=== PATIENT | male | born 1995 | race American Indian/Alaskan Native ===

== ENCOUNTER 2018-03-19 10:33 | Emergency (ER) | payer OTHER ==
[2018-03-19] MEDS ORDERED: Ketorolac 30 MG/ML SDV IM ONE (11:13)
--- NOTE | 2018-03-19 11:23 | EDM.PDOC ---
Scribed by Camilla Lopez 03/19/18 1123 for Vikas Thomas PA ED HPI GENERAL MEDICAL PROBLEM - General Chief Complaint: Lower Extremity Injury/Pain Stated Complaint: RT HIP Time Seen by Provider: 03/19/18 11:06 Source of Information: Reports: Patient, RN, RN Notes Reviewed History Limitations: Reports: No Limitations - History of Present Illness INITIAL COMMENTS - FREE TEXT/NARRATIVE: {Patient states he had right foot pain that started yesterday and then moved up to his leg and now into his hip. Patient was marching in the [employer] training with a 50 to 60 pound pack on his back. He was given aspirin and Ibuprofen yesterday and aspirin today. Onset: Gradual Duration: Getting Worse Location: Reports: Lower Extremity, Right Quality: Reports: Ache Severity: Moderate Improves with: Reports: None Worsens with: Reports: None Associated Symptoms: Reports: No Other Symptoms Right Leg Pain Score (Numeric/FACES): 7 - Related Data Allergies Allergy/AdvReac Type Severity Reaction Status Date / Time No Known Allergies Allergy Verified 03/19/18 10:54 Home Meds: Home Meds Omeprazole Magnesium [Prilosec Otc] 20 mg PO DAILY 03/19/18 [History] Past Medical History - Past Surgical History Dermatological Surgical History: Reports: Other (See Below) Social & Family History - Tobacco Use Smoking Status *Q: Never Smoker - Caffeine Use Caffeine Use: Reports: Soda, Tea - Alcohol Use Days Per Week of Alcohol Use: 2 Number of Drinks Per Day: 2 Total Drinks Per Week: 4 - Recreational Drug Use Recreational Drug Use: No Review of Systems - Review of Systems Review Of Systems: ROS reveals no pertinent complaints other than HPI. ED EXAM, GENERAL - Physical Exam Exam: See Below Exam Limited By: No Limitations General Appearance: Alert, WD/WN, No Apparent Distress Eye Exam: Bilateral Eye: Normal Inspection Ears: Normal External Exam, Normal Canal, Hearing Grossly Normal, Normal TMs Nose: Normal Inspection, Normal Mucosa, No Blood Throat/Mouth: Normal Inspection, Normal Lips, Normal Teeth, Normal Gums, Normal Oropharynx, Normal Voice, No Airway Compromise Head: Atraumatic, Normocephalic Neck: Normal Inspection, Supple, Non-Tender, Full Range of Motion Respiratory/Chest: No Respiratory Distress, Lungs Clear, Normal Breath Sounds, No Accessory Muscle Use, Chest Non-Tender Cardiovascular: Normal Peripheral Pulses, Regular Rate, Rhythm, No Edema, No Gallop, No JVD, No Murmur, No Rub GI/Abdominal: Normal Bowel Sounds (Male) Exam: Deferred Rectal (Males) Exam: Deferred Back Exam: Normal Inspection, Full Range of Motion, NT Extremities: Other (Right hip pain severe. Right foot pain mild. Right sloan pain mild. Right thigh pain mild. ) Neurological: Alert, Oriented, CN II-XII Intact, Normal Cognition, Normal Gait, Normal Reflexes, No Motor/Sensory Deficits Psychiatric: Normal Affect, Normal Mood Skin Exam: Warm Lymphatic: No Adenopathy Course - Vital Signs Last Recorded V/S: Last Vital Signs Temp 36.6 C 03/19/18 10:47 Pulse 88 03/19/18 10:47 Resp 16 03/19/18 10:47 BP 125/72 03/19/18 10:47 Pulse Ox 98 03/19/18 10:47 - Orders/Labs/Meds Meds: Medications Discontinued Medications Generic Name Dose Route Start Last Admin Trade Name Xavierq PRN Reason Stop Dose Admin Ketorolac Tromethamine 60 mg 03/19/18 11:13 Toradol IM 03/19/18 11:14 ONETIME ONE Departure - Departure Time of Disposition: 11:19 Disposition: Home, Self-Care 01 Condition: Fair Clinical Impression: Strain of right hip Qualifiers: Encounter type: initial encounter Qualified Code(s): S76.011A - Strain of muscle, fascia and tendon of right hip, initial encounter Muscle strain of right lower extremity Qualifiers: Encounter type: initial encounter Qualified Code(s): S86.911A - Strain of unspecified muscle(s) and tendon(s) at lower leg level, right leg, initial encounter - Discharge Information *PRESCRIPTION DRUG MONITORING PROGRAM REVIEWED*: Not Applicable *COPY OF PRESCRIPTION DRUG MONITORING REPORT IN PATIENT [facility]: Not Applicable Instructions: Muscle Strain, [id number] Forms: ED Department Discharge Care Plan Goals: The patient was advised of the examination results during the visit. The patient was given an injection of Toradol (60 mg) while in the ED. The patient was discharged with a script for Toradol (10 mg) #20 to take 1 by mouth every 6 hours and Flexeril (10 mg) #20 to take 1 by mouth at bedtime or every 6 hours as needed. The patient was encouraged to rest, ice and elevate his right lower extremity over the next 48 hours. If the patient has any additional symptoms or concerns, the patient should follow-up with his primary care facility or return to the emergency department. I have read and agree with the documentation that has been completed regarding this visit. By signing this record, I attest that the documentation was completed in my physical presence and is an accurate record of the encounter.
== END 2018-03-19 11:38 | disposition home or self-care (01) ==
LOC: DL.ED 10:33
DX: S76.011A Strain of muscle, fascia and tendon of right hip, initial encounter (principal); S86.911A Strain of unspecified muscle(s) and tendon(s) at lower leg level, right leg, initial encounter; X58.XXXA Exposure to other specified factors, initial encounter
CPT/HCPCS: 96372; 99283; J1885

== ENCOUNTER 2018-03-21 07:27 | Emergency (ER) | payer OTHER ==
--- NOTE | 2018-03-21 07:42 | EDM.PDOC ---
ED HPI GENERAL MEDICAL PROBLEM - General Chief Complaint: Lower Extremity Injury/Pain Stated Complaint: [id number] RT HIP Time Seen by Provider: 03/21/18 07:40 Source of Information: Reports: Patient, RN, RN Notes Reviewed History Limitations: Reports: No Limitations - History of Present Illness INITIAL COMMENTS - FREE TEXT/NARRATIVE: Pt to ER with c/o right leg pain. He states he was seen 2 days ago, and he feels the pain is getting worse. Patient states he was marching with 50-60 pounds on his back. The pain began in the lower sloan area, moving up the leg into the hip. He states the pain is a 4/10 at rest, and 8-9/10 when trying to bear weight. He states bearing weight is near impossible. Pt denies any acute injury or trauma to the area. Pt admits to some numbness and tingling in the right foot and toes, denies saddle anesthesia. Onset: Gradual Onset Date: 03/19/18 Duration: Constant, Getting Worse Location: Reports: Lower Extremity, Right Quality: Reports: Ache, Stabbing Severity: Severe Improves with: Reports: None Worsens with: Reports: Movement Associated Symptoms: Reports: No Other Symptoms Right Hip Pain Score (Numeric/FACES): 6 - Related Data Allergies Allergy/AdvReac Type Severity Reaction Status Date / Time No Known Allergies Allergy Verified 03/21/18 07:40 Home Meds: Home Meds Omeprazole Magnesium [Prilosec Otc] 20 mg PO DAILY 03/19/18 [History] Cyclobenzaprine [Flexeril] 10 mg PO Q6HR 03/21/18 [History] Past Medical History - Past Surgical History Dermatological Surgical History: Reports: Other (See Below) Social & Family History - Caffeine Use Caffeine Use: Reports: Soda, Tea Review of Systems - Review of Systems Review Of Systems: ROS reveals no pertinent complaints other than HPI. ED EXAM, GENERAL - Physical Exam Exam: See Below Exam Limited By: No Limitations General Appearance: Alert, WD/WN, No Apparent Distress Eye Exam: Bilateral Eye: EOMI, Normal Inspection Ears: Normal External Exam, Hearing Grossly Normal Nose: Normal Inspection Throat/Mouth: Normal Inspection, Normal Voice, No Airway Compromise Head: Atraumatic, Normocephalic Neck: Normal Inspection, Supple, Non-Tender, Full Range of Motion Respiratory/Chest: No Respiratory Distress, Lungs Clear, Normal Breath Sounds, No Accessory Muscle Use, Chest Non-Tender Cardiovascular: Normal Peripheral Pulses, Regular Rate, Rhythm Peripheral Pulses: 2+: Radial (L), Radial (R), Dorsalis Pedis (L), Dorsalis Pedis (R) GI/Abdominal: Normal Bowel Sounds, Soft, Non-Tender (Male) Exam: Deferred Rectal (Males) Exam: Deferred Back Exam: Normal Inspection, Full Range of Motion Extremities: Normal Inspection, No Pedal Edema, Normal Capillary Refill, Leg Pain, Limited Range of Motion Neurological: Alert, Oriented, CN II-XII Intact, Normal Cognition, Normal Gait, Normal Reflexes, No Motor/Sensory Deficits Psychiatric: Normal Affect, Normal Mood Skin Exam: Warm, Dry, Intact, Normal Color, No Rash Lymphatic: No Adenopathy Course - Vital Signs Last Recorded V/S: Last Vital Signs Temp 97.8 F 03/21/18 07:35 Pulse 83 03/21/18 07:35 Resp 16 03/21/18 07:35 BP 124/68 03/21/18 07:35 Pulse Ox 100 03/21/18 07:35 - Radiology Interpretation Free Text/Narrative:: Right hip xray: No acute findings Right femur xray: No acute findings Right tib/fib xray: No acute findings See rad report Departure - Departure Time of Disposition: 08:54 Disposition: Home, Self-Care 01 Condition: Fair Clinical Impression: Sprain of hip Muscle strain of right lower extremity Qualifiers: Encounter type: initial encounter Qualified Code(s): S86.911A - Strain of unspecified muscle(s) and tendon(s) at lower leg level, right leg, initial encounter - Discharge Information *PRESCRIPTION DRUG MONITORING PROGRAM REVIEWED*: Not Applicable *COPY OF PRESCRIPTION DRUG MONITORING REPORT IN PATIENT [facility]: Not Applicable Instructions: Crutch Use, Adult, [id number], Muscle Strain, [id number] Forms: ED Department Discharge Additional Instructions: May alternate heat and ice as tolerated Rest the leg Continue to use the previously prescribed Flexeril and Toradol May also use Tylenol 325-1000mg every 4-6 hours when needed, maximum 4000 mg/day
--- NOTE | 2018-03-21 08:18 | CR ---
Clinical history: 22-year-old male right hip (buttock pain)....remote injury. Interpretation: AP pelvis/hips and AP/frog lateral view of the right hip unremarkable (metallic disea se and spring artifact). Symmetric spacing normal-appearing SI and hip joints. No arthritic degenerative changes. No sign of pathologic skeletal lesion, pelvic or either hip fracture/dislocation. CONCLUSION: Negative plain film exam sacrum, pelvis and hips.
--- NOTE | 2018-03-21 08:20 | CR ---
Clinical history: 22-year-old male pain right leg (unable to bear weight). Interpretation: AP lateral right hip and femur negative. No sign of pathologic skeletal lesion along bone fracture right femur or right hip dislocation.
--- NOTE | 2018-03-21 08:21 | CR ---
Clinical history: 22-year-old male unable to bear weight (no acute injury). Pain right lower extremit y. Interpretation: AP lateral right lower extremity films negative. Homogeneous normal bone density of the right tibia and fibula. No sign of pathologic skeletal lesion, long bone fracture, right knee or ankle joint dislocation.
== END 2018-03-21 09:08 | disposition home or self-care (01) ==
LOC: DL.ED 07:27
DX: S73.101A Unspecified sprain of right hip, initial encounter (principal); S86.911A Strain of unspecified muscle(s) and tendon(s) at lower leg level, right leg, initial encounter; Z79.899 Other long term (current) drug therapy; X58.XXXA Exposure to other specified factors, initial encounter; Y93.01 Activity, walking, marching and hiking
CPT/HCPCS: 73590-RT; 99283; 99284